=== PATIENT | male | born 1990 | race African-American/Black ===

== ENCOUNTER 2017-09-01 14:44 | Emergency (ER) | payer BC ==
[~2017-09-01] VITALS: Ht 190.5 cm; Wt 81.7 kg
[~2017-09-01 14:44] MED LIST: DOXYCYCLINE 10100 MG PO; IBUPROFEN 800800 M1 PO; ZOFRAN ODT4 MG PO
[2017-09-01] MEDS ORDERED: TRAMADOL 50 MG50 MG PO (15:29)
[2018-03-14] MEDS ORDERED: NOHOMEMEDICATIONS (20:01)
[2018-03-14] MEDS ORDERED: MOBIC15 MG PO (21:52)
== END 2017-09-01 15:43 | disposition home or self-care (01) ==
LOC: ER 14:44
DX: S93.601A Unspecified sprain of right foot, initial encounter (principal); F17.210 Nicotine dependence, cigarettes, uncomplicated; W10.8XXA Fall (on) (from) other stairs and steps, initial encounter; Y93.89 Activity, other specified; Y92.89 Other specified places as the place of occurrence of the external cause; Y99.8 Other external cause status

== ENCOUNTER 2018-08-08 00:03 | Emergency (ER) | payer BC ==
[~2018-08-08] VITALS: Ht 188 cm; Wt 81.7 kg
[~2018-08-08 00:03] MED LIST changes: +MOBIC15 MG PO; +NOHOMEMEDICATIONS; +TRAMADOL 50 MG50 MG PO
[2018-08-08] MEDS ORDERED: NAPROSYN500 MG PO (00:36)
[2018-08-08 00:59] VITALS: BP 126/76
== END 2018-08-08 01:01 | disposition home or self-care (01) ==
LOC: ER 00:03
DX: S63.690A Other sprain of right index finger, initial encounter (principal); F17.210 Nicotine dependence, cigarettes, uncomplicated; W51.XXXA Accidental striking against or bumped into by another person, initial encounter; Y93.89 Activity, other specified; Y92.89 Other specified places as the place of occurrence of the external cause; Y99.8 Other external cause status